=== PATIENT | female | born 1955 | race Caucasian/White ===

== ENCOUNTER → 2017-08-15 | Outpatient (CLI) | payer BC | END | disposition home or self-care (01) | LOC: LAB SHORT 11:51 → OLS 11:51 | DX: N18.3 Chronic kidney disease, stage 3 (moderate) (principal); D63.1 Anemia in chronic kidney disease; N25.81 Secondary hyperparathyroidism of renal origin; E78.00 Pure hypercholesterolemia, unspecified; R76.9 Abnormal immunological finding in serum, unspecified; R94.5 Abnormal results of liver function studies; R94.6 Abnormal results of thyroid function studies; D51.8 Other vitamin B12 deficiency anemias; D50.9 Iron deficiency anemia, unspecified | CPT/HCPCS: 86335 ==

== ENCOUNTER → 2017-08-23 | Outpatient (CLI) | payer BC ==
[2017-08-23 12:31] LABS: Protein, Urine Quantitative 5.7 mg/dL (0.0-11.9)
[2017-08-23 12:46] LABS: Microalbumin, Urine Quant. <5.000 mg/L (0.000-20.000)
== END | disposition home or self-care (01) ==
LOC: OLS 11:20 → LAB SHORT 11:20
PROVIDERS: Internal Medicine Nephrology
DX: N18.2 Chronic kidney disease, stage 2 (mild) (principal); D63.1 Anemia in chronic kidney disease; R80.9 Proteinuria, unspecified
CPT/HCPCS: 81050; 82043; 84156

== ENCOUNTER 2018-08-23 01:38 | Emergency (ER) | payer BC ==
[~2018-08-23] VITALS: Ht 160 cm; Wt 117.9 kg
[2018-08-23] MEDS ORDERED: MONT4 PO (01:47)
[2018-08-23] MEDS ORDERED: LEVSOD125 (01:48)
[2018-08-23] MEDS ORDERED: AZITHROMYCIN 250 MG (01:49)
[2018-08-23 02:12] LABS: BASOPHILS ABSOLUTE AUTO 0.07 K/mm3 (0.00-0.23); BASOPHILS PERCENT AUTO 1 % (0-2); EOSINOPHILS ABSOLUTE AUTO 0.34 K/mm3 (0.00-0.68); EOSINOPHILS PERCENT AUTO 2 % (0-6); Hemoglobin 14.3 g/dL (11.5-16.0); IMMATURE GRAN ABSOLUTE AUTO 0.13 K/mm3 (0.00-0.10); IMMATURE GRAN PERCENT AUTO 1 % (0-1); LYMPHOCYTES ABSOLUTE AUTO 3.63 K/mm3 (0.84-5.20); LYMPHOCYTES PERCENT AUTO 25 % (21-46); MONOCYTES ABSOLUTE AUTO 1.12 K/mm3 (0.16-1.47); MONOCYTES PERCENT AUTO 8 % (4-13); Mean Corpuscular HGB 29.9 pg (26.0-34.0); Mean Corpuscular HGB Conc 31.8 g/dL (31.5-36.5); Mean Corpuscular Volume 94 fL (80-100); Mean Platelet Volume 8.4 fL (9.1-12.4); NEUTROPHILS ABSOLUTE AUTO 8.99 K/mm3 (1.96-9.15); NEUTROPHILS PERCENT AUTO 63 % (41-73); Platelet Count 334 K/mm3 (150-400); RDW Coefficient Variation 14.1 % (11.7-14.2); RDW Standard Deviation 48.7 fL (35.1-46.3); Red Blood Cell Count 4.79 M/mm3 (3.80-5.20); White Blood Cell Count 14.28 K/mm3 (4.00-11.30)
[2018-08-23 02:29] LABS: Alanine Aminotransfer (ALT/SGP 41 U/L (12-78); Albumin, Blood 3.5 g/dL (3.4-5.0); Albumin/Globulin Ratio 0.9 (0.8-1.8); Alk Phos 95 U/L (50-136); Anion Gap 5 mmol/L (6-16); Aspartate Aminotrans (AST/SGOT 20 U/L (12-37); Bilirubin, Total 0.4 mg/dL (0.1-1.0); Blood Urea Nitrogen 13 mg/dL (8-24); Bun/Creatinine Ratio 13.4 (12.0-20.0); CO2, Blood 28 mmol/L (21-32); Chloride, Blood 104 mmol/L (98-108); Creatinine, Blood 0.97 mg/dL (0.40-1.00); Globulin, Blood 3.8 g/dL (2.2-4.0); Glomerular Filtration Rate >60 (60-); Glucose, Blood 117 mg/dL (70-99); Sodium, Blood 137 mmol/L (136-145); Total Protein, Blood 7.3 g/dL (6.4-8.2)
[2018-08-23] MEDS ORDERED: ONDA4ODT MM (04:04)
[2018-08-23] MEDS ORDERED: HYOS.125 SL (04:04)
== END 2018-08-23 04:15 | disposition home or self-care (01) ==
LOC: ER 01:38
PROVIDERS: Emergency Medicine
DX: K80.50 Calculus of bile duct without cholangitis or cholecystitis without obstruction (principal); Z88.5 Allergy status to narcotic agent; Z79.899 Other long term (current) drug therapy
CPT/HCPCS: 36415; 74018; 80053; 83690; 85025; 93005; 93010; 96374; 96375; 99284-25; J2405; J2765; J3010

== ENCOUNTER → 2019-05-23 | Outpatient (CLI) | payer BC ==
[~2019-05-23] MED LIST: AZITHROMYCIN 250 MG; HYOS.125 SL; LEVSOD125; MONT4 PO; ONDA4ODT MM
== END ==
LOC: LAB 15:29 → LAB SHORT 15:29
DX: J31.0 Chronic rhinitis (principal); J32.4 Chronic pansinusitis; J32.0 Chronic maxillary sinusitis
CPT/HCPCS: 87070; 87077; 87186; 87205

== ENCOUNTER 2020-01-07 19:01 | Emergency (ER) | payer BC ==
[~2020-01-07] VITALS: Ht 160 cm; Wt 117.9 kg
[2020-01-07 19:59] LABS: BASOPHILS ABSOLUTE AUTO 0.05 K/mm3 (0.00-0.23); BASOPHILS PERCENT AUTO 0 % (0-2); EOSINOPHILS ABSOLUTE AUTO 0.12 K/mm3 (0.00-0.68); EOSINOPHILS PERCENT AUTO 1 % (0-6); Hematocrit 46.9 % (33.0-51.0); Hemoglobin 14.7 g/dL (11.5-16.0); IMMATURE GRAN ABSOLUTE AUTO 0.09 K/mm3 (0.00-0.10); IMMATURE GRAN PERCENT AUTO 1 % (0-1); LYMPHOCYTES ABSOLUTE AUTO 2.32 K/mm3 (0.84-5.20); LYMPHOCYTES PERCENT AUTO 13 % (21-46); MONOCYTES ABSOLUTE AUTO 1.28 K/mm3 (0.16-1.47); MONOCYTES PERCENT AUTO 7 % (4-13); Mean Corpuscular HGB 28.4 pg (26.0-34.0); Mean Corpuscular HGB Conc 31.3 g/dL (31.5-36.5); Mean Corpuscular Volume 91 fL (80-100); Mean Platelet Volume 8.7 fL (9.1-12.4); NEUTROPHILS ABSOLUTE AUTO 13.67 K/mm3 (1.96-9.15); NEUTROPHILS PERCENT AUTO 78 % (41-73); Platelet Count 354 K/mm3 (150-400); RDW Standard Deviation 47.6 fL (35.1-46.3); Red Blood Cell Count 5.17 M/mm3 (3.80-5.20); White Blood Cell Count 17.53 K/mm3 (4.00-11.30)
[2020-01-07 20:39] LABS: Albumin, Blood 3.4 g/dL (3.4-5.0); Albumin/Globulin Ratio 0.8 (0.8-1.8); Bilirubin, Total 0.5 mg/dL (0.1-1.0); Bun/Creatinine Ratio 13.1 (12.0-20.0); Calcium, Blood 9.4 mg/dL (8.5-10.1); Creatinine, Blood 0.99 mg/dL (0.40-1.00); Globulin, Blood 4.3 g/dL (2.2-4.0); Potassium, Blood 4.2 mmol/L (3.5-5.5); Total Protein, Blood 7.7 g/dL (6.4-8.2)
[2020-01-07 21:21] LABS: Source, Urine Voided
[2020-01-07 21:26] LABS: Appearance, Urine Clear (Clear); Bilirubin, Urine Neg (Neg); Blood, Urine 4+ (Neg); Color, Urine Amber (P-Yellow); Glucose Qualitative, Urine Neg (Neg); Ketones, Urine 1+ (Neg); Leukocyte Esterase, Urine 2+ (Neg); Nitrite, Urine Neg (Neg); Protein, Urine 1+ (Neg); Urobilinogen, Urine 1+ (Normal)
[2020-01-07 21:31] LABS: Bacteria Many /hpf; Mucus Light (0-Heavy); Squamous Epithelial Cells Mod /hpf (Few)
[2020-01-07] MEDS ORDERED: PROM25 PO (23:38)
[2020-01-07] MEDS ORDERED: [UNRECOGNIZED DRUG - CODE] (23:51)
[2020-01-07] MEDS ORDERED: SPIRIVA RESPIMAT4 G3 IH (23:51)
[2020-01-07] MEDS ORDERED: FUROSEMIDE20 MG PO (23:52)
== END 2020-01-07 23:54 | disposition home or self-care (01) ==
LOC: ER 19:01
PROVIDERS: Emergency Medicine
DX: R11.2 Nausea with vomiting, unspecified (principal); R10.11 Right upper quadrant pain; F31.9 Bipolar disorder, unspecified; K21.9 Gastro-esophageal reflux disease without esophagitis; E03.9 Hypothyroidism, unspecified; Z88.5 Allergy status to narcotic agent; Z79.899 Other long term (current) drug therapy
CPT/HCPCS: 36415; 76705; 80053; 81001; 83690; 85025; 87086; 93005; 93010; 96374; 96375; 99284-25; J2405; J2550; J7120

== ENCOUNTER 2020-06-29 07:08 | Day surgery (SDC) | payer BC ==
[~2020-06-29] VITALS: Ht 160 cm; Wt 119.7 kg
[~2020-06-29 07:08] MED LIST changes: +COMBIVENT RESPIM4 G1; +FUROSEMIDE20 MG PO; +GUAI600T33 PO; +LEVSOD100 PO; +MONT10T PO; +OMEP20ER PO; +PROM25 PO; +SPIRIVA RESPIMAT4 G3 IH; +TIOT18 INH; +VITAMIN D310 MC4 PO; +WIXELA 500-501 EAC1 INH; +[UNRECOGNIZED DRUG - CODE]; +[UNRECOGNIZED DRUG - OTHER]
[2020-06-29] MEDS ORDERED: AZIT250 PO (08:07)
--- NOTE | 2020-06-29 08:24 | NUR ---
Ambulatory in Day Surgery History, Chart, Medications and Allergies reviewed before start of procedure. PT c EXPIRATORY WHEEZES, REPORTS HX OF CHRONIC BRONCHITIS. Patient confirms NPO status and agrees with scheduled surgery. Patient reports completing Chlorhexadine shower X2 prior to admission to hospital.
--- NOTE | 2020-06-29 11:50 | NUR ---
Dressing to procedure site clean, dry, intact with no visible drainage, swelling, erythema or bruising noted.
--- NOTE | 2020-06-29 12:33 | NUR ---
PT TOLERATING PO FLUIDS/SOLIDS. PROVIDED ORDERED ORAL PAIN MED
--- NOTE | 2020-06-29 12:35 | NUR ---
Dressing to procedure site clean, dry, intact with no visible drainage, swelling, erythema or bruising noted. Discussed ice pack and how to use
--- NOTE | 2020-06-29 13:25 | NUR ---
Discharge instructions reviewed with patient. Patient verbalizes understanding. Copy given to patient to take home. Dressing to procedure site clean, dry, intact with no visible drainage, swelling, erythema or bruising noted. Pea size drainaged noted on umbilicus incision.Discharged via wheelchair to private car for ride home.
== END 2020-06-29 13:28 | disposition home or self-care (01) ==
LOC: ORSCMMR 07:08 → ORD 08:45 → ORSCMMR 08:45
PROVIDERS: Surgery
PROC: 0FT44ZZ Resection of Gallbladder, Percutaneous Endoscopic Approach (ICD-10-PCS; principal; 2020-06-29 08:45)
DX: K80.10 Calculus of gallbladder with chronic cholecystitis without obstruction (principal); K66.0 Peritoneal adhesions (postprocedural) (postinfection); J44.9 Chronic obstructive pulmonary disease, unspecified; K21.9 Gastro-esophageal reflux disease without esophagitis; E03.9 Hypothyroidism, unspecified; Z79.899 Other long term (current) drug therapy; E66.01 Morbid (severe) obesity due to excess calories; Z68.42 Body mass index [BMI] 45.0-49.9, adult
CPT/HCPCS: 88304; A9270-GY; J0690; J1100; J1885; J2250; J2405; J2704; J3010; J7120

== ENCOUNTER → 2023-06-20 | Outpatient (CLI) | payer MEDICARE, BC ==
[~2023-06-20] MED LIST changes: +AZIT250 PO
== END | disposition home or self-care (01) ==
LOC: LAB 11:22 → LAB SHORT 11:22
DX: N89.8 Other specified noninflammatory disorders of vagina (principal)
CPT/HCPCS: 87070; 87205

== ENCOUNTER 2023-12-28 00:58 | Day surgery (SDC) | payer MEDICARE, BC ==
[2023-12-28] MEDS ORDERED: MEPOLIZUMAB 100 MG VIAL SC SCH (06:00)
[2023-12-28 11:04] VITALS: BP 159/93
== END 2023-12-28 11:46 | disposition home or self-care (01) ==
LOC: ATC 00:58
DX: J45.50 Severe persistent asthma, uncomplicated (principal); K21.9 Gastro-esophageal reflux disease without esophagitis; J33.9 Nasal polyp, unspecified; Z79.899 Other long term (current) drug therapy; Z88.2 Allergy status to sulfonamides; Z88.5 Allergy status to narcotic agent
CPT/HCPCS: 96372; J2182

== ENCOUNTER 2024-02-23 04:08 | Day surgery (SDC) | payer MEDICARE, BC ==
[~2024-02-23 04:08] MED LIST changes: +ATORVASTATIN CA20 MG PO; +MIRALAX17 GM PO; +[UNRECOGNIZED DRUG - OTHER] PO
[2024-02-23] MEDS ORDERED: MEPOLIZUMAB 100 MG VIAL SC SCH (06:00)
[2024-02-23 15:56] VITALS: BP 165/82
== END 2024-02-23 16:05 | disposition home or self-care (01) ==
LOC: ATC 04:08
DX: J45.50 Severe persistent asthma, uncomplicated (principal); J33.9 Nasal polyp, unspecified; G47.30 Sleep apnea, unspecified; Z88.5 Allergy status to narcotic agent; Z88.2 Allergy status to sulfonamides; Z79.890 Hormone replacement therapy; Z79.899 Other long term (current) drug therapy
CPT/HCPCS: 96372; J2182

== ENCOUNTER 2024-03-12 06:32 | Emergency (ER) | payer MEDICARE, BC ==
[~2024-03-12] VITALS: Ht 160 cm; Wt 120.2 kg
[2024-03-12 08:22] VITALS: BP 152/93
[2024-03-12] MEDS ORDERED: Tetracaine HCl/Pf 0.5% Opth Soln 4 ml LEFTEYE ONE (08:45)
[2024-03-12] MEDS ORDERED: Fluorescein Sod 1MG Opth Strips LEFTEYE ONE (08:45)
[2024-03-12] MEDS ORDERED: NS 1,000 ML IV SCH (08:45)
[2024-03-12] MEDS ORDERED: Erythromycin 0.5% Opth Oint 1 gm LEFTEYE ONE (10:20)
[2024-03-12] MEDS ORDERED: ERYT1OIN LEFTEYE (11:06)
== END 2024-03-12 11:25 | disposition home or self-care (01) ==
LOC: ER 06:32
DX: T52.8X1A Toxic effect of other organic solvents, accidental (unintentional), initial encounter (principal); S05.02XA Injury of conjunctiva and corneal abrasion without foreign body, left eye, initial encounter; E03.9 Hypothyroidism, unspecified; K21.9 Gastro-esophageal reflux disease without esophagitis; X58.XXXA Exposure to other specified factors, initial encounter; Z79.899 Other long term (current) drug therapy; Z88.5 Allergy status to narcotic agent; Z88.2 Allergy status to sulfonamides
CPT/HCPCS: 99283; A9270; J7030

== ENCOUNTER 2024-03-22 07:16 | Day surgery (SDC) | payer MEDICARE, BC ==
[~2024-03-22 07:16] MED LIST changes: +ERYT1OIN LEFTEYE; +MEPOLIZUMAB 100 MG VIAL SC SCH
[2024-03-22 10:57] VITALS: BP 118/71
[2024-03-22] MEDS ORDERED: FML LEFTEYE (11:03)
== END 2024-03-22 11:05 | disposition home or self-care (01) ==
LOC: ATC 07:16
DX: J45.50 Severe persistent asthma, uncomplicated (principal); K21.9 Gastro-esophageal reflux disease without esophagitis; Z88.5 Allergy status to narcotic agent; Z88.2 Allergy status to sulfonamides; Z79.899 Other long term (current) drug therapy
CPT/HCPCS: 96372; J2182

== ENCOUNTER 2024-04-22 01:05 | Day surgery (SDC) | payer MEDICARE, BC ==
[~2024-04-22 01:05] MED LIST changes: +FML LEFTEYE; -MEPOLIZUMAB 100 MG VIAL SC SCH
[2024-04-22] MEDS ORDERED: MEPOLIZUMAB 100 MG VIAL SC SCH (06:00)
[2024-04-22 11:22] VITALS: BP 169/80
== END 2024-04-22 11:35 | disposition home or self-care (01) ==
LOC: ATC 01:05
DX: J45.50 Severe persistent asthma, uncomplicated (principal); K21.9 Gastro-esophageal reflux disease without esophagitis; Z88.2 Allergy status to sulfonamides; Z88.5 Allergy status to narcotic agent; Z79.899 Other long term (current) drug therapy
CPT/HCPCS: 96372; J2182

== ENCOUNTER 2024-05-20 02:18 | Day surgery (SDC) | payer MEDICARE, BC ==
[2024-05-20] MEDS ORDERED: MEPOLIZUMAB 100 MG VIAL SC SCH (06:00)
[2024-05-20 10:19] VITALS: BP 153/91
== END 2024-05-20 10:25 | disposition home or self-care (01) ==
LOC: ATC 02:18
DX: J45.50 Severe persistent asthma, uncomplicated (principal); J33.9 Nasal polyp, unspecified; G47.30 Sleep apnea, unspecified; Z88.2 Allergy status to sulfonamides; Z88.5 Allergy status to narcotic agent; Z79.899 Other long term (current) drug therapy
CPT/HCPCS: 96372; J2182

== ENCOUNTER → 2024-05-23 | Outpatient (CLI) | payer MEDICARE, BC | LOC: LAB 16:55 → LAB SHORT 16:55 | DX: R30.0 Dysuria (principal) | CPT/HCPCS: 87086 ==

== ENCOUNTER 2024-06-10 11:17 | Emergency (ER) | payer MEDICARE, BC ==
[~2024-06-10] VITALS: Ht 160 cm; Wt 116.6 kg
[2024-06-10 11:29] VITALS: BP 166/103
== END 2024-06-10 12:52 | disposition home or self-care (01) ==
LOC: ER 11:17
DX: M79.605 Pain in left leg (principal); K21.9 Gastro-esophageal reflux disease without esophagitis
CPT/HCPCS: 93971; 99283-25

== ENCOUNTER 2024-06-17 01:37 | Day surgery (SDC) | payer MEDICARE, BC ==
[2024-06-17] MEDS ORDERED: MEPOLIZUMAB 100 MG VIAL SC SCH (11:05)
[2024-06-17 11:39] VITALS: BP 153/68
== END 2024-06-17 11:28 | disposition home or self-care (01) ==
LOC: ATC 01:37
DX: J45.50 Severe persistent asthma, uncomplicated (principal); Z88.5 Allergy status to narcotic agent; Z88.2 Allergy status to sulfonamides; Z79.899 Other long term (current) drug therapy
CPT/HCPCS: 96372; J2182

== ENCOUNTER 2024-07-17 01:59 | Day surgery (SDC) | payer MEDICARE, BC ==
[2024-07-17] MEDS ORDERED: MEPOLIZUMAB 100 MG VIAL SC SCH (06:00)
[2024-07-17 11:23] VITALS: BP 151/81
== END 2024-07-17 11:34 | disposition home or self-care (01) ==
LOC: ATC 01:59
DX: J45.50 Severe persistent asthma, uncomplicated (principal); Z88.5 Allergy status to narcotic agent; Z88.2 Allergy status to sulfonamides; Z77.22 Contact with and (suspected) exposure to environmental tobacco smoke (acute) (chronic); Z79.899 Other long term (current) drug therapy
CPT/HCPCS: 96372; J2182

== ENCOUNTER 2024-09-17 03:30 | Day surgery (SDC) | payer MEDICARE, BC ==
[2024-09-17] MEDS ORDERED: MEPOLIZUMAB 100 MG VIAL SC SCH (06:00)
== END 2024-09-17 11:37 | disposition home or self-care (01) ==
LOC: ATC 03:30
DX: J45.50 Severe persistent asthma, uncomplicated (principal); J82.83 Eosinophilic asthma; Z88.2 Allergy status to sulfonamides; Z88.5 Allergy status to narcotic agent
CPT/HCPCS: 96372; J2182

== ENCOUNTER 2024-10-15 10:48 | Day surgery (SDC) | payer MEDICARE, BC ==
[~2024-10-15 10:48] MED LIST changes: +MEPOLIZUMAB 100 MG VIAL SC SCH
[2024-10-15 11:19] VITALS: BP 136/81
== END 2024-10-15 11:20 | disposition home or self-care (01) ==
LOC: ATC 10:48
DX: J45.50 Severe persistent asthma, uncomplicated (principal); J82.83 Eosinophilic asthma; Z79.899 Other long term (current) drug therapy; Z88.2 Allergy status to sulfonamides; Z88.5 Allergy status to narcotic agent
CPT/HCPCS: 96372; J2182

== ENCOUNTER 2024-11-14 00:43 | Day surgery (SDC) | payer MEDICARE, BC ==
[~2024-11-14 00:43] MED LIST changes: -MEPOLIZUMAB 100 MG VIAL SC SCH
[2024-11-14] MEDS ORDERED: MEPOLIZUMAB 100 MG VIAL SC SCH (06:00)
[2024-11-14 11:12] VITALS: BP 158/84
== END 2024-11-14 11:25 | disposition home or self-care (01) ==
LOC: ATC 00:43
DX: J45.50 Severe persistent asthma, uncomplicated (principal); J82.83 Eosinophilic asthma; Z77.22 Contact with and (suspected) exposure to environmental tobacco smoke (acute) (chronic); Z79.890 Hormone replacement therapy; Z79.899 Other long term (current) drug therapy; Z88.2 Allergy status to sulfonamides; Z88.5 Allergy status to narcotic agent; Z98.890 Other specified postprocedural states
CPT/HCPCS: 96372; J2182

== ENCOUNTER 2024-12-12 00:39 | Day surgery (SDC) | payer MEDICARE, BC ==
[2024-12-12] MEDS ORDERED: MEPOLIZUMAB 100 MG VIAL SC SCH (06:00)
[2024-12-12 11:18] VITALS: BP 143/81
== END 2024-12-12 11:18 | disposition home or self-care (01) ==
LOC: ATC 00:39
DX: J45.50 Severe persistent asthma, uncomplicated (principal); J82.83 Eosinophilic asthma; Z88.5 Allergy status to narcotic agent; Z88.2 Allergy status to sulfonamides; Z79.899 Other long term (current) drug therapy
CPT/HCPCS: 96372; J2182

== ENCOUNTER 2025-01-13 01:05 | Day surgery (SDC) | payer MEDICARE, BC ==
[~2025-01-13 01:05] MED LIST changes: +MEPOLIZUMAB 100 MG VIAL SC SCH
[2025-01-13 11:03] VITALS: BP 165/92
== END 2025-01-13 11:12 | disposition home or self-care (01) ==
LOC: ATC 01:05
DX: J82.83 Eosinophilic asthma (principal); J32.9 Chronic sinusitis, unspecified; J33.9 Nasal polyp, unspecified; K21.9 Gastro-esophageal reflux disease without esophagitis; Z88.5 Allergy status to narcotic agent; Z88.2 Allergy status to sulfonamides
CPT/HCPCS: 96372; J2182

== ENCOUNTER 2025-02-14 03:42 | Day surgery (SDC) | payer MEDICARE, BC ==
[~2025-02-14 03:42] MED LIST changes: -MEPOLIZUMAB 100 MG VIAL SC SCH
[2025-02-14] MEDS ORDERED: MEPOLIZUMAB 100 MG VIAL SC SCH (06:00)
[2025-02-14 10:14] VITALS: BP 130/70
== END 2025-02-14 10:21 | disposition home or self-care (01) ==
LOC: ATC 03:42
DX: J45.909 Unspecified asthma, uncomplicated (principal); J82.83 Eosinophilic asthma; G47.33 Obstructive sleep apnea (adult) (pediatric); Z79.890 Hormone replacement therapy; Z79.899 Other long term (current) drug therapy; Z88.2 Allergy status to sulfonamides; Z88.5 Allergy status to narcotic agent
CPT/HCPCS: 96372; J2182